=== PATIENT | male | born 1990 | race African-American/Black ===

== ENCOUNTER 2018-04-29 23:03 | Emergency (ER) | payer SELFPAY ==
[~2018-04-29] VITALS: Ht 180.3 cm; Wt 81.8 kg
[2018-04-29 23:32] LABS: APPEARANCE,URINE CLEAR (CLEAR); BILIRUBIN,URINE NEGATIVE (NEGATIVE); GLUCOSE, URINE (UA) NEGATIVE (NEGATIVE); KETONES,URINE NEGATIVE (NEGATIVE); LEUKOCYTE ESTERASE ,URINE NEGATIVE (NEGATIVE); NITRATE,URINE NEGATIVE (NEGATIVE); PROTEIN,URINE NEGATIVE (NEGATIVE); UROBILINOGEN,URINE 0.2 mg/dL (<=1.0)
[2018-04-29 23:38] LABS: OCCULT BLOOD,URINE TRACE (NEGATIVE)
[2018-04-29 23:39] LABS: BACTERIA,URINE None Seen /HPF (None Seen); RBC,URINE 0-2 /HPF (0-2); WBC,URINE None Seen /HPF (0-5)
[2018-04-30] MEDS ORDERED: LIDOCAINE/PF 1% 2 ML VIAL ONE (00:55)
[2018-04-30 01:00] VITALS: BP 135/72
[2018-04-30] MEDS ORDERED: CefTRIAXone SODIUM 1 GM/VIAL IM ONE (01:00)
[2018-04-30] MEDS ORDERED: AZITHROMYCIN 250 MG TABLET PO ONE (01:00)
== END 2018-04-30 01:25 | disposition home or self-care (01) ==
LOC: EMS 23:06
DX: N34.2 Other urethritis (principal)
CPT/HCPCS: 81001; 87491; 87591; 96372; 99283; J0696; J3490